=== PATIENT | female | born 1995 | race Caucasian/White ===

== ENCOUNTER 2020-07-08 00:44 | Emergency (ER) | payer BC, SELFPAY ==
--- NOTE | ~2020-07-08 | CT_ITS ---
EXAMINATION: CT abdomen pelvis w con DATE: 07/08/2020 01:52 INDICATION: Right lower abdominal pain TECHNIQUE: Computed tomography (CT) of the abdomen and pelvis was performed with 100 cc Omnipaque 350 intravenous contrast. The dose-length product was 272.00 mGy-cm. Automated exposure control and iter ative reconstruction technique were employed. COMPARISON: None. FINDINGS: Lung bases are unremarkable. No significant pleural or pericardial effusion. Heart size is normal. No significant vascular abnormality. No significant vascular abnormality. No lymphadenopathy. The liver, spleen, pancreas, adrenal glands and kidneys are unremarkable. Nonobstructive bowel gas pa ttern. There is an IUD in the uterus. 3.4 cm right ovarian cyst. Trace free fluid in the pelvis. No n o free air. No acute osseous abnormality. IMPRESSION: 1. 3.4 cm complicated right ovarian cyst. Trace free fluid in the pelvis. Consider correlation with u ltrasound. Reviewed, dictated and finalized at location A. CARRIER IMPRESSION: 1. 3.4 cm complicated right ovarian cyst. Trace free fluid in the pelvis. Consi elle correlation with ultrasound.
--- NOTE | ~2020-07-08 | US_ITS ---
EXAMINATION: US pelvic complete w TV DATE: 07/08/2020 03:47 INDICATION: Right ovarian cyst. Evaluate for torsion. Comparison:CT dated 07/08/2020 TECHNIQUE: Multiple transabdominal and endovaginal sonographic images of the pelvis performed. FINDINGS: The uterus measures 6.4 x 2.8 x 4.3 cm. There is an IUD in expected position. The endometri al complex measures 3 mm. The right ovary measures 3.9 x 3.6 x 3.1 cm and the left ovary measures 2.2 x 2 x 1.7 cm. There is a complicated hemorrhagic cyst in the right ovary measuring 3.2 x 3 x 2 cm. There is normal Doppler sig nal in the right ovary. No evidence for torsion. No free fluid. There are small follicles in each ova ry. There is no free fluid in the pelvis. There are no abnormal masses seen on either side. IMPRESSION: 1. Hemorrhagic cyst of the right ovary measuring up to 3.2 cm without evidence for torsion. 2: IUD in expected position. Reviewed, dictated and finalized at location A. D CARE DEVELOPMENT SPECIALIST
[2020-07-08 00:49] VITALS: BP 116/70; PULSE 100; RESP 20; TEMP 36.7; O2SAT 100
[2020-07-08 01:19] LABS: Basophils Percent Auto 0.3 % (0.2-1.2); Eosinophils Absolute Auto 0.2 K/mm3 (0-0.3); Eosinophils Percent Auto 1.3 % (0-4.4); Hematocrit 39.7 % (37.0-47.0); Hemoglobin 13.4 g/dL (12.0-15.0); Immature Granulocyte Absolute 0.05 K/mm3 (0.00-0.031); Immature Granulocyte Percent A 0.4 % (0-0.5); Lymphocytes Absolute Auto 3.02 K/mm3 (0.9-3.2); Lymphocytes Percent Auto 25.9 % (18.3-44.2); Mean Corpuscular HGB Conc 33.8 g/dl (32-36); Mean Corpuscular Volume 97.8 fl (80-100); Monocytes Absolute Auto 0.6 K/mm3 (0.1-0.6); Monocytes Percent Auto 5.1 % (2.6-8.5); Neutrophils Absolute Auto 7.8 K/mm3 (1.3-6.7); Platelet Count Result 275 k/mm3 (150-375); Red Blood Count 4.06 M/mm3 (4.2-5.4); Red Cell Distribution Width 11.9 % (11.5-14.5); White Blood Count 11.7 K/mm3 (4.5-10.0)
[2020-07-08 01:26] LABS: Add Urine Microscopic? YES; Appearance Urine Clear (Clear); Bilirubin Urine Negative (Negative); Blood Urine Negative (Negative); Color Urine Yellow (Yellow); Glucose Urine UA Negative (Negative); Ketones Urine Negative (Negative); Leukocyte Esterase Ur Negative LEU/UL (Negative); Mucus Urine Heavy /lpf; Nitrate Urine Negative (Negative); Protein Urine 1+ mg/dL (Negative); RBC Urine 0-2 /hpf (0-2); Squamous Epithelial Cell Urine Few /hpf (Few); Urobilinogen Urine Negative mg/dL (<2.0); WBC Urine 0-3 /hpf
[2020-07-08 01:27] LABS: Alanine Aminotransferase 19 U/L (4-35); Albumin Level 4.2 g/dL (3.5-5.1); Alkaline Phosphatase 68 U/L (38-126); Anion Gap 3 mmol/L (8-16); Aspartate Amino Transferase 24 U/L (14-36); Bilirubin,Total 0.3 mg/dL (0.2-1.3); Blood Urea Nitrogen 19 mg/dL (7-17); Calcium 9.2 mg/dL (8.4-10.2); Carbon Dioxide 28 mmol/L (22-30); Chloride 106 mmol/L (98-107); Estimated CRCL calculation 122 ml/min; Estimated Glomerular Filt Rate > 60; Glucose 119 mg/dL (65-105); Lipase 60 U/L (23-300); Potassium 3.5 mmol/L (3.4-5.0); Sodium 137 mmol/L (137-145)
[2020-07-08] MEDS: ONDANSETRON INJ 4 MG/2 ML VIAL IV PUSH (01:37)
[2020-07-08] MEDS: LACTATED RINGERS 1,000 ML 999 ML IV CONT (01:37)
[2020-07-08 01:39] LABS: Specific Grav Ur 1.034 (1.001-1.035)
--- NOTE | 2020-07-08 02:38 | ED.ABDPAIN ---
HPI - Abdominal Pain General Chief Complaint: Abdominal Pain Stated Complaint: pain to RLQ x several days, N/V Time Seen by Provider: 07/08/20 00:45 Source: patient Mode of arrival: ambulatory Limitations: no limitations History of Present Illness HPI narrative: This patient is a 24 year old female who presents for evaluation of right lower abdominal pain. This pain has been present for 3-4 days. She reports constant dull aching pain that is worse with walking and intercourse. She reports her pain was severe tonight while she was having sexual i ntercourse. This severe pain made her have nausea and vomiting. She has not tried any medication for her pain. She denies urinary symptoms. She denies fever or chills. S Migration to: no migration Related Data Home Medications Medication Instructions Recorded Confirmed escitalopram oxalate 20 mg PO DAILY 07/08/20 07/08/20 Allergies Allergy/AdvReac Type Severity Reaction Status Date / Time No Known Allergies Allergy Verified 07/08/20 00:53 Review of Systems Review of Systems: All systems reviewed & are unremarkable except as noted in HPI and below PMFSH Past Medical History Medical History (Updated 07/08/20 @ 04:16 by Amairani Johnson MD) Patient denies medical problems Surgical History Surgical History (Updated 07/08/20 @ 02:41 by Amairani Johnson MD) No pertinent past surgical history Social History Social History (Updated 07/08/20 @ 02:41 by Amairani Johnson MD) Smoking status: Never smoker Exam Const: General: alert Orientation/consciousness: patient oriented x3 HENMT: Head: normocephalic and atraumatic Face and sinus: face symmetric Throat: posterior oropharynx normal and tonsils normal Eyes: EOM: EOMs intact bilaterally Resp: Effort & Inspection: normal respiratory effort and no retractions Auscultation: clear to auscultation bilaterally Cardio: Rate: regular rate Rhythm: regular rhythm Heart sounds: no murmurs GI: GI Palp: Yes Soft to palpation, Yes Tenderness to palpation present (GI) and No Guarding due to palpation present (GI) Auscultation: normal bowel sounds Skin: General skin exam: normal color Rashes: no rashes Neuro: General: patient oriented x3 and moves all extremities Course Reevaluation(s) Reevaluation #1: I Discussed with patient that she has been found to have a hemorrhagic cyst. We discusssed discharged plan and follow up with home and family living professor. Date: 07/08/20 Time: 04:11 Vital Signs Vital signs: Vital Signs Temperature 98.0 F 07/08/20 00:49 Pulse Rate 100 07/08/20 00:49 Respiratory Rate 20 07/08/20 00:49 Blood Pressure 116/70 07/08/20 00:49 Pulse Oximetry 100 07/08/20 00:49 Temperature 98.0 F 07/08/20 00:49 Pulse Rate 98 07/08/20 04:12 Respiratory Rate 16 07/08/20 04:12 Blood Pressure 103/64 07/08/20 04:12 Pulse Oximetry 100 07/08/20 04:12 MDM - Abdominal Pain Lab Data Attestation: I reviewed the patient's lab results. Result diagrams: 07/08/20 01:10 07/08/20 01:10 Labs: Lab Results 07/08/20 07/08/20 07/08/20 Range/Units 01:10 01:10 01:10 WBC 11.7 H (4.5-10.0) K/mm3 RBC 4.06 L (4.2-5.4) M/mm3 Hgb 13.4 (12.0-15.0) g/dL Hct 39.7 (37.0-47.0) % MCV 97.8 (80-100) fl MCH 33.0 (26-34) pg MCHC 33.8 (32-36) g/dl RDW 11.9 (11.5-14.5) % Plt Count 275 (150-375) k/mm3 MPV 10.0 (7.4-10.4) fl Immature Gran % (Auto) 0.4 (0-0.5) % Neut % (Auto) 67.0 (45.5-73.1) % Lymph % (Auto) 25.9 (18.3-44.2) % Webster % (Auto) 5.1 (2.6-8.5) % Eos % (Auto) 1.3 (0-4.4) % Baso % (Auto) 0.3 (0.2-1.2) % Lymph # (Auto) 3.02 (0.9-3.2) K/mm3 Webster # (Auto) 0.6 (0.1-0.6) K/mm3 Eos # (Auto) 0.2 (0-0.3) K/mm3 Baso # (Auto) 0.0 (0.0-0.1) K/mm3 Abs Immat Gran (auto) 0.05 H (0.00-0.031) K/mm3 Absolute Neuts (auto) 7.8 H (1.3-6.7) K/mm3 Absolute Nucleated RBC 0.
[2020-07-08 03:08] VITALS: BP 103/59; PULSE 71; RESP 16; O2SAT 99
[2020-07-08 04:12] VITALS: BP 103/64; PULSE 98; RESP 16; O2SAT 100
== END 2020-07-08 04:20 | disposition home or self-care (01) ==
PROVIDERS: Emergency Provider General Practice
DX: N83.201 Unspecified ovarian cyst, right side (principal)
CPT/HCPCS: 36415; 74177; 76830; 76856; 80053; 81001; 81025; 83690; 85025; 96361; 96374; 99284; J2405; J7120; Q9967

== ENCOUNTER 2022-02-17 09:14 | Emergency (ER) | payer BC, SELFPAY ==
--- NOTE | ~2022-02-17 | XR_ITS ---
EXAMINATION: XR chest 2V DATE: 02/17/2022 10:05 INDICATION: Left upper chest pain. TECHNIQUE: Frontal and lateral views of the chest were obtained. COMPARISON: CT abdomen and pelvis 07/08/2020 FINDINGS: The chest demonstrates clear lungs without pneumonia, pleural effusion, or pneumothorax. Th e heart size is normal. IMPRESSION: 1. No acute cardiopulmonary disease. Reviewed, dictated and finalized at location A.
[2022-02-17 09:16] VITALS: BP 109/69; PULSE 106; RESP 18; TEMP 36.5; O2SAT 100
--- NOTE | 2022-02-17 09:30 | ECG_ITS ---
Measurements Intervals [place] Rate: 116 P: 75 ME: 144 QRS: 80 QRSD: 84 T: 47 QT: 333 QTc: 464 Interpretive Statements SINUS TACHYCARDIA OTHERWISE NORMAL ECG NO PREVIOUS ECG AVAILABLE FOR COMPARISON Electronically Signed On 02-17-2022 17:00:56 CDT by Jose Fisher M.D.
--- NOTE | 2022-02-17 09:31 | ED.CHESTPAIN ---
HPI - Chest Pain General Chief Complaint: Chest Pain Stated Complaint: chest discomfort - dx with covid 3 weeks ago Time Seen by Provider: 02/17/22 09:18 History of Present Illness HPI narrative: 26-year-old female presents the emergency room for evaluation of chest pain that has been present for 1 week. Patient denies any alleviating or aggravating factors. Reports taking Tylenol once which did not help her pain. States that she recently had COVID approximately 3 weeks ago. Denies any associated shortness of breath, difficulty breathing, or cough. States pain is a sharp stabbing pain and it radiates into her left arm occasionally. Related Data Home Medications Medication Instructions Recorded Confirmed escitalopram oxalate 20 mg tablet 20 mg PO DAILY 07/08/20 07/08/20 Allergies Allergy/AdvReac Type Severity Reaction Status Date / Time No Known Allergies Allergy Verified 02/17/22 09:15 Review of Systems Review of Systems: CONSTITUTIONAL: Denies fever, chills, or sweats. EYES: Denies visual changes, redness, or discharge. ENT: Denies rhinorrhea, congestion, sore throat, or otalgia. CARDIOVASCULAR: Reports chest pain, denies palpitations or edema. RESPIRATORY: Denies cough or dyspnea. GASTROINTESTINAL: Denies abdominal pain, nausea, vomiting, or diarrhea. GENITOURINARY: Denies dysuria or hematuria. SKIN: Denies rash or itching. MUSCULOSKELETAL: Denies back pain, joint pain, or myalgia. NEUROLOGIC: Denies headache, numbness, dizziness, or weakness. PSYCHIATRIC: Denies anxiety or depression. PMFSH Past Medical History Medical History Patient denies medical problems Surgical History Surgical History No pertinent past surgical history Social History Social History Smoking status: Never smoker Exam Narrative: GENERAL: Well-appearing, well-nourished, no physical limitations, and in no acute distress. HEAD: Normocephalic, atraumatic. EYES: Conjunctivae normal, PERRLA and EOMI. NECK: Supple. No adenopathy or masses. CHEST: Clear to auscultation. No respiratory distress. No wheezes rales or rhonchi. No tenderness. HEART: Regular rate and rhythm. No murmur heard. Normal peripheral pulses. ABDOMEN: Soft, nontender, nondistended, normal active bowel sounds. EXTREMITIES: Normal range of motion. No edema. No clubbing or cyanosis SKIN: Warm, dry, no rash. No noted wounds NEURO: No focal deficits. Alert and oriented x3. MAEW. CN's II-XI intact bilaterally, normal gait PSYCH: Cooperative. Anxious and tearful. Course Vital Signs Vital signs: Vital Signs Temperature 36.5 C 02/17/22 09:16 Pulse Rate 106 H 02/17/22 09:16 Respiratory Rate 18 02/17/22 09:16 Blood Pressure 109/69 02/17/22 09:16 Pulse Oximetry 100 02/17/22 09:16 Temperature 36.5 C 02/17/22 09:16 Pulse Rate 106 H 02/17/22 09:16 Respiratory Rate 18 02/17/22 09:16 Blood Pressure 109/69 02/17/22 09:16 Pulse Oximetry 100 02/17/22 09:16 MDM - Chest Pain MDM Narrative Medical decision making narrative: 26-year-old female presented with complaints of chest pain status being COVID-positive 3 weeks ago. Exam showed no evidence of volume overload. EKG showed no signs of active ischemia. Single troponin was negative. D-dimer was within normal limits was not consistent with an acute PE. Wells score was low. Chest x-ray shows no acute cardiopulmonary process. Patient responded well to 30 mg of Toradol. Presentation is likely due to pleuritis or costochondritis from her recent COVID. Heart score is 0 so patient will be discharged home to follow-up with primary care physician. Lab Data Labs: Lab Results 02/17/22 02/17/22 Range/Units 09:39 09:39 D-Dimer < 0.27 (<0.48) ug/mL Troponin I < 0.012 (0.000-0.034) ng/mL Imaging Data Radi
[2022-02-17] MEDS: KETOROLAC 30 MG/ML VIAL (*BKC) IV PUSH (09:47)
[2022-02-17 10:00] LABS: D Dimer < 0.27 ug/mL (<0.48)
[2022-02-17 10:05] LABS: Troponin I < 0.012 ng/mL (0.000-0.034)
[2022-02-17 10:15] VITALS: BP 114/60; PULSE 83; RESP 19; O2SAT 100
[2022-02-17 11:50] VITALS: BP 112/63; PULSE 74; RESP 16; O2SAT 99
== END 2022-02-17 11:50 | disposition home or self-care (01) ==
PROVIDERS: Emergency Provider Nurse Practitioner Family
DX: M94.0 Chondrocostal junction syndrome [Tietze] (principal); R00.0 Tachycardia, unspecified; Z86.16 Personal history of COVID-19
CPT/HCPCS: 36415; 71046; 84484; 85380; 93005; 96374; 99284; J1885